=== PATIENT | male | born 1965 | race African-American/Black ===

== ENCOUNTER 2021-04-11 14:14 | Observation (INO) ==
[2021-04-11] MEDS ORDERED: REMDESIVIR 200 MG in NS 250 ML IV 250 ML IV ONE (15:47)
--- NOTE | 2021-04-11 16:08 | RAD ---
HISTORYPNEUMONIA, COVIDSTUDYCHEST x-ray, PA/LAT ADULTCOMPARISONX-ray 01/16/2021FINDINGSThere are vague peripheral infiltrates in both lungs that are probably due to mild COVID 19 pneumonia. Possible mild underlying COPD. Heart is normal in size. No pneumothorax or pleural effusion is seen.IMPRESSIONProbable mild bilateral COVID 19 pneumonia. Continued x-ray follow-up is recommended.Electronically signed by: Josh Baugh (Apr 11, 2021 16:06:21)
[2021-04-11] MEDS: NS 1,000 ML IV 1,000 ML IV SCH (16:29)
[2021-04-11 16:40] LABS: BASOPHILS % (AUTO) 0.4 % (0.2-1.0); HEMATOCRIT 43.5 % (42.0-54.0); HEMOGLOBIN 14.5 g/dL (13.5-18.0); LYMPHOCYTES # (AUTO) 0.9 X10^3/uL (1.3-2.9); LYMPHOCYTES % (AUTO) 12.6 % (21.0-51.0); MEAN CORPUSCULAR HEMOGLOBIN 30.8 pg (27.0-34.0); MEAN CORPUSCULAR HGB CONC 33.3 g/dL (33.0-35.0); MEAN CORPUSCULAR VOLUME 92.4 fL (80.0-100.0); MEAN PLATELET VOLUME 8.2 fL (7.4-11.0); MONOCYTES # (AUTO) 0.7 x10^3/uL (0.3-0.8); MONOCYTES % (AUTO) 10.4 % (0.0-13.0); NEUTROPHILS # (AUTO) 5.3 x10^3/uL (2.2-4.8); NEUTROPHILS % (AUTO) 76.6 % (42.0-75.0); RED BLOOD COUNT 4.71 X10^6/uL (4.7-6.0); WHITE BLOOD COUNT 6.9 X10^3/uL (3.6-10.0)
[2021-04-11 16:53] LABS: ALANINE AMINOTRANSFERASE 110 Units/L (12-78); ALBUMIN 3.5 g/dL (3.4-5.0); ALKALINE PHOSPHATASE 62 Units/L (46-116); ASPARTATE AMINO TRANSFERASE 132 Units/L (15-37); BLOOD UREA NITROGEN 18 mg/dL (7-18); CHLORIDE 103 mmol/L (98-107); COR NA(FOR HYPERGLY) 142 mmol/L (136-145); CREATININE 1.15 mg/dL (0.70-1.30); SODIUM 142 mmol/L (136-145); TOTAL PROTEIN 8.4 g/dL (6.4-8.2); eGFR NON BLACK RACES > 60 (>60)
[2021-04-11 17:03] LABS: ABG ALLEN TEST POS; ABG BASE EXCESS 8.3 mmol/L (-2.0-2.0); ABG HCO3 32.8 mmol/L (22-26)
[2021-04-11 17:16] VITALS: BMI 31.4
[2021-04-11] MEDS ORDERED: NS 100 ML IV 100 ML ONE (17:52)
--- NOTE | 2021-04-11 18:29 | CT ---
CT angiogram chest with contrastIndication: Hypertension, diabetes and elevated D-dimerTECHNIQUEHelical images through the chest after IV contrast. Coronal and sagittal reformats provided. MIP images provided.FINDINGSLimited images through the upper abdomen demonstrate right renal cyst. No other unexpected abnormality seen on limited images. Review of bone windows demonstrate no destructive osseous lesion. Degenerative changes seen at the sternomanubrial joint.Chest chest wall soft tissues show no unexpected abnormality. The thyroid gland is normal. Heart size is normal. Aortic arch and branch vessels are patent. Pulmonary artery bolus timing is suboptimal, without massive central pulmonary artery filling defect identified. However, the central segmental and subsegmental vessels are poorly evaluated and thrombus cannot be completely excluded.Patchy bilateral pulmonary opacities are somewhat peripherally located and basilar predominant, compatible with moderate viral pneumonitis, probably from COVID-19 infection.There is no pneumothorax, effusion or dense consolidation otherwise.IMPRESSION1. Suboptimal bolus timing limits evaluation for pulmonary embolus. While there is no massive central thrombus convincingly demonstrated. Proximal and distal vessels are poorly evaluated and thrombus cannot be completely excluded.2. Pulmonary opacities, compatible with COVID-19 viral pneumonitis most likely, moderate and appearance.Electronically signed by: MADHURI ANGEL (Apr 11, 2021 18:27:57)
[2021-04-11] MEDS ORDERED: PULMICORT NEB TX 0.5 MG NEB ONE (19:26)
[2021-04-11] MEDS ORDERED: BROVANA ONE (19:27)
[2021-04-11] MEDS: BROVANA IN SCH (20:35)
[2021-04-11] MEDS: PULMICORT NEB TX 0.5 MG NEB SCH (20:35)
[2021-04-11] MEDS ORDERED: TESSALON PERLES PO PRN (20:57)
--- NOTE | 2021-04-11 20:59 | DR.H&P ---
H&P History & Physical for Day of: H&P Date: 04/11/21 Chief Complaint Chief Complaint: Shortness of breath Generalized weakness, fever, chills Allergies Allergies Allergy/AdvReac Type Severity Reaction Status Date / Time No Known Drug Allergies Allergy Verified 02/04/19 02:56 History of Present Illness History of Present Illness: Pt is a 55 year old male past medical history of Hypertension, DMT2, presenting with shortness of breath, cough, fever, chills and generalized weakness since Friday. He went to ED yesterday and was diagnosed with COVID-19 infection. Today he tried to get Regen-COV infusion but was denied when found to by hypoxic on pulse ox and told to follow up with pcp. He was directly admitted after evaluation in clinic and was found that have pulse ox at 88%. Labs/imaging: Wbc 6.9, Hgb 14.5, Plt 249, Na 142, K 4.1, Creatinine 1.15, Glucose 119, CRP 19.5, D-dimer 1.02, ABG was obtained that revealed: pH 7.48, PC02 44, P02 55, HC03 32, 02 SAT 90, on RA. CXR: Probable mild bilateral COVID 19 pneumonia. Continued x-ray follow-up is recommended. Will start patient on treatment pneumonia protocol that includes: IVF NS@75 ml/h, Remdesivir, Solumedrol 80mg q8h, scheduled Bronchodilators Xopenex and Budesonide, Famotidine 40mg BID, Tussionex prn, immune supporting supplements, supplemental O2, SSI, I/S, Lovenox 30mg BID, Physical therapy, Respiratory therapy consult. Wean/titrate supplemental oxygen as tolerated. Will get CTA Chest due to elevated D-dimer in setting of hypoxia and COVID-19 infection. Continue to closely monitor and follow up labs/imaging. Time spent on clinical assessment, reviewing labs and imaging, decision making, and documentation greater than 45 minutes. Past Medical History Past Medical History: Diabetes and Hypertension Past Surgical History Surgical History: Ortho Surgery Family History Family Medical History: Diabetes Mellitus and Hypertension Social History Does patient currently use any type of tobacco product: No Have you used tobacco products in the last 12 months: No Type of Tobacco Use: None Alcohol Use: None Drug Use: None Medications Home Medications: No Known Drug Allergies Allergy (Verified 02/04/19 02:56) CONTINUE taking the following medications glipizide 2.5 mg PO DAILY 04/11/21 [History] lisinopril 30 mg PO DAILY 04/11/21 [History] Labs Result Diagrams: 04/11/21 16:20 04/11/21 16:20 Labs: Laboratory WBC 6.9 X10^3/uL (3.6-10.0) 04/11/21 16:20 RBC 4.71 X10^6/uL (4.7-6.0) 04/11/21 16:20 Hgb 14.5 g/dL (13.5-18.0) 04/11/21 16:20 Hct 43.5 % (42.0-54.0) 04/11/21 16:20 MCV 92.4 fL (80.0-100.0) 04/11/21 16:20 MCH 30.8 pg (27.0-34.0) 04/11/21 16:20 MCHC 33.3 g/dL (33.0-35.0) 04/11/21 16:20 RDW 13.0 % (11.6-16.5) 04/11/21 16:20 Plt Count 249 X10^3/uL (150.0-450.0) 04/11/21 16:20 MPV 8.2 fL (7.4-11.0) 04/11/21 16:20 Neut % (Auto) 76.6 % (42.0-75.0) H 04/11/21 16:20 Lymph % (Auto) 12.6 % (21.0-51.0) L 04/11/21 16:20 [place] % (Auto) 10.4 % (0.0-13.0) 04/11/21 16:20 Eos % (Auto) 0.0 % (0.9-2.9) L 04/11/21 16:20 Baso % (Auto) 0.4 % (0.2-1.0) 04/11/21 16:20 Neut # (Auto) 5.3 x10^3/uL (2.2-4.8) H 04/11/21 16:20 Lymph # (Auto) 0.9 X10^3/uL (1.3-2.9) L 04/11/21 16:20 [place] # (Auto) 0.7 x10^3/uL (0.3-0.8) 04/11/21 16:20 Eos # (Auto) 0.0 x10^3/uL (0.0-0.2) 04/11/21 16:20 Baso # (Auto) 0.0 X10^3/uL (0.0-0.1) 04/11/21 16:20 Absolute Nucleated RBC 0.1 /100WBC 04/11/21 16:20 D-Dimer 1.02 ug/ml (0.0-0.57) H* 04/11/21 16:20 Sample Site Rr 04/11/21 06:58 ABG pH 7.480 (7.35-7.45) H 04/11/21 06:58 ABG pCO2 44.0 mmHg (35.0-45.0) 04/11/21 06:58 ABG pO2 55.0 mmHg (80.0-100.0) L 04/11/21 06:58 ABG HCO3 32.8 mmol/L (22-26) H* 04/11/21 06:58 ABG O2 Saturation 90.0 % (90-100) 04/11/21 06:58 ABG Base Excess 8.3 mmol/L (-2.0-2.0) H 04/11/21 06:58 Shawn Test Pos 04/11/21 06:58 A-a Gradient 40.0 mmHg 04/11/21 06:58 FiO2 21.0 04/11/21 06:58 Blood Gas Comments Pt micah well cdn 04/11/21 06:58 Sodium 142 mmol/L (136-145) 04/11/21 16:20 Corrected Sodium 142 mmol/L (136-145) 04/11/21 16:20 Potassium 4.1 mmol/L (3.5-5.1) 04/11/21 16:20 Chloride 103 mmol/L (98-107) 04/11/21 16:20 Carbon Dioxide 29.0 mmol/L (21-32) 04/11/21 16:20 BUN 18 mg/dL (7-18) 04/11/21 16:20 Creatinine 1.15 mg/dL (0.70-1.30) 04/11/21 16:20 Est GFR (MDRD) Af Amer > 60 (>60) 04/11/21 16:20 Est GFR (MDRD) Non-Af > 60 (>60) 04/11/21 16:20 Glucose 119 mg/dL (65-99) H 04/11/21 16:20 POC Glucose (mg/dL) 127 mg/dL (65-99) H 04/11/21 20:17 Calcium 9.0 mg/dL (8.5-10.1) 04/11/21 16:20 Corrected Calcium TNP 04/11/21 16:20 Total Bilirubin 0.90 mg/dL (0.2-1.0) 04/11/21 16:20 AST 132 Units/L (15-37) H 04/11/21 16:20 ALT 110 Units/L (12-78) H 04/11/21 16:20 Alkaline Phosphatase 62 Units/L (46-116) 04/11/21 16:20 C-Reactive Protein 19.50 mg/L (0-3.0) H 04/11/21 16:20 Total Protein 8.4 g/dL (6.4-8.2) H 04/11/21 16:20 Albumin 3.5 g/dL (3.4-5.0) 04/11/21 16:20 Globulin 4.9 g/dL (2.5-4.5) H 04/11/21 16:20 Albumin/Globulin Ratio 0.7 Ratio (1.1-2.1) L 04/11/21 16:20 Review of Systems Constitutional: Fever, Chills and Weakness Eyes: No Symptoms Reported ENT: No Symptoms Reported Respiratory: Cough and Shortness of Breath Cardiovascular: No Symptoms Reported Gastrointestinal: No Symptoms Reported Genitourinary: No Symptoms Reported Musculoskeletal: No Symptoms Reported Skin: No Symptoms Reported Neurological: No Symptoms Reported Physical Exam Vital Signs: Temperature 100.1 F Pulse Rate [Apical] 102 Pulse Rate 101 Respiratory Rate 26 Blood Pressure [Left Arm] 144/93 Blood Pressure [Right Arm] 131/66 Blood Pressure 136/89 O2 Sat by Pulse Oximetry 96 Oriented: Normal Eyes: Normal Ear: Normal Nose: Normal Throat: Normal Respiratory: Diminished Throughout, Rhonchi Throughout and Rales Throughout Cardiovascular: Normal : Normal Auscultation: Bowel Sounds: Normal Palpation: Normal Tenderness: Normal Skin: Normal Musculoskeletal: Normal Psychiatric: Normal Mood Description: Calm and Appropriate Affect: Normal Speech Pattern: Clear and Appropriate Assessment/Plan (1) Pneumonia due to COVID-19 virus: Status: Acute Plan: Pneumonia protocol (2) Hypoxia: Status: Acute Review H&P Reviewed: Yes Patient was examined?: Yes
[2021-04-11] MEDS ORDERED: TYLENOL 325 MG TAB PO PRN (21:47)
[2021-04-11] MEDS ORDERED: TYLENOL 325 MG TAB PO ONE (21:49)
[2021-04-11] MEDS: PEPCID TAB 40 MG PO SCH (22:06)
[2021-04-11] MEDS: LOVENOX INJ 30 MG SYR SC SCH (22:06)
[2021-04-11] MEDS: ZINC SULFATE PO SCH (22:07)
[2021-04-11] MEDS: SOLU-Medrol 40 MG VIAL IVP SCH (22:09)
[2021-04-11] MEDS: TUSSIONEX PENNKINETIC SUSP PO PRN (22:09)
[2021-04-11] MEDS: RESTORIL CAP 15 MG PO PRN (22:09)
[2021-04-12 05:23] LABS: BASOPHILS % (AUTO) 0.2 % (0.2-1.0); HEMATOCRIT 39.2 % (42.0-54.0); HEMOGLOBIN 13.2 g/dL (13.5-18.0); LYMPHOCYTES # (AUTO) 0.3 X10^3/uL (1.3-2.9); LYMPHOCYTES % (AUTO) 6.8 % (21.0-51.0); MEAN CORPUSCULAR HEMOGLOBIN 30.8 pg (27.0-34.0); MEAN CORPUSCULAR HGB CONC 33.6 g/dL (33.0-35.0); MEAN CORPUSCULAR VOLUME 91.8 fL (80.0-100.0); MEAN PLATELET VOLUME 8.3 fL (7.4-11.0); MONOCYTES # (AUTO) 0.3 x10^3/uL (0.3-0.8); MONOCYTES % (AUTO) 5.9 % (0.0-13.0); NEUTROPHILS # (AUTO) 3.9 x10^3/uL (2.2-4.8); NEUTROPHILS % (AUTO) 87.1 % (42.0-75.0); RED BLOOD COUNT 4.27 X10^6/uL (4.7-6.0); RED CELL DISTRIBUTION WIDTH 13.3 % (11.6-16.5); WHITE BLOOD COUNT 4.5 X10^3/uL (3.6-10.0)
[2021-04-12 05:42] LABS: ALANINE AMINOTRANSFERASE 94 Units/L (12-78); ALKALINE PHOSPHATASE 55 Units/L (46-116); ASPARTATE AMINO TRANSFERASE 92 Units/L (15-37); BLOOD UREA NITROGEN 21 mg/dL (7-18); CALCIUM 8.4 mg/dL (8.5-10.1); CARBON DIOXIDE 27.9 mmol/L (21-32); CHLORIDE 103 mmol/L (98-107); COR CA(FOR HYPOALB) 9.2 mg/dL (8.5-10.1); COR NA(FOR HYPERGLY) 142 mmol/L (136-145); CREATININE 1.23 mg/dL (0.70-1.30); SODIUM 139 mmol/L (136-145); TOTAL PROTEIN 7.6 g/dL (6.4-8.2); eGFR NON BLACK RACES > 60 (>60)
[2021-04-12] MEDS: NS 1,000 ML IV 1,000 ML IV SCH ×3 (05:46→21:17)
[2021-04-12] MEDS: SOLU-Medrol 40 MG VIAL IVP SCH ×3 (05:47→21:18)
[2021-04-12] MEDS: GLUCOPHAGE PO SCH ×2 (06:01→17:02)
[2021-04-12] MEDS ORDERED: GLUCOPHAGE ONE ×2 (06:03→16:52)
--- NOTE | 2021-04-12 06:36 | RAD ---
HISTORYFollow-up COVID-19STUDYChest AP [id number] chest x-ray and CTA chestFINDINGSHeart size is normal. Mica are normal. Scattered ground-glass infiltrates are present throughout both lungs not significantly changed from the prior examination or the recent CTA chest. No pleural effusion or pneumothorax is identified. Bony thorax is unremarkable.IMPRESSIONScattered bilateral areas of ground-glass infiltrate suggestive of multifocal pneumonia and unchanged from the prior examination or recent CTAElectronically signed by: ZI CESAR (Apr 12, 2021 06:34:55)
[2021-04-12] MEDS: REMDESIVIR 100 MG in NS 250 ML IV 250 ML IV SCH (09:00)
[2021-04-12] MEDS: LOVENOX INJ 30 MG SYR SC SCH ×2 (09:01→21:17)
[2021-04-12] MEDS: GLUCOTROL XL 24-HR PO SCH (09:01)
[2021-04-12] MEDS: NORVASC TAB 10 MG PO SCH (09:02)
[2021-04-12] MEDS: PEPCID TAB 40 MG PO SCH ×2 (09:02→21:18)
[2021-04-12] MEDS: VITAMIN C PO SCH (09:02)
[2021-04-12] MEDS: ZESTRIL TAB 10 MG PO SCH (09:03)
[2021-04-12] MEDS: ZINC SULFATE PO SCH ×2 (09:03→21:18)
[2021-04-12] MEDS: PULMICORT NEB TX 0.5 MG NEB SCH ×2 (09:05→20:15)
[2021-04-12] MEDS: BROVANA IN SCH ×2 (09:05→20:15)
[2021-04-12] MEDS: TUSSIONEX PENNKINETIC SUSP PO PRN ×2 (09:34→21:21)
--- NOTE | 2021-04-12 10:31 | PCM.PROG ---
Progress Note Progress Note for Day of Date of Exam: 04/12/21 Subjective Subjective: Pt is a 55 year old male past medical history of Hypertension, DMT2, admitted for COVID-19 pneumonia with hypoxia. Pt is currently requiring 2L nasal cannula supplemental oxygen. This morning he reports some improvement in his breathing. Labs/imaging: Wbc 4.5, Hgb 13.2, Plt 241, Na 139, K 5.0, Creatinine 1.23, Glucose 231, CRP 19.5>37, D-dimer 1.02, Due to elevated D-dimer and hypoxia CTA Chest was obtained that revealed: 1. Suboptimal bolus timing limits evaluation for pulmonary embolus. While there is no massive central thrombus convincingly demonstrated. Proximal and distal vessels are poorly evaluated and thrombus cannot be completely excluded. 2. Pulmonary opacities, compatible with COVID-19 viral pneumonitis most likely, moderate and appearance. Pt is currently on pneumonia protocol: IVF NS@75 ml/h, Remdesivir, Solumedrol 80mg q8h, scheduled Bronchodilators Xopenex and Budesonide, Famotidine 40mg BID, Tussionex prn, immune supporting supplements, supplemental O2, SSI, I/S, Lovenox 30mg BID, Physical therapy, Respiratory therapy consult. Wean/titrate supplemental oxygen as tolerated. Will repeat CTA Chest due to poor contrast timing unable to completely rule out pulmonary embolism. Restart home medications. Add on smart vest. Otherwise will continue current treatment plan. Continue to closely monitor and follow up labs/imaging. Time spent on clinical assessment, reviewing labs and imaging, decision making, and documentation greater than 45 minutes. Past Medical Family Social History Past Med/Fam/Surg Hx: No changes since H&P Allergies: Allergies No Known Drug Allergies Allergy (Verified 02/04/19 02:56) Review of Systems ROS: No change since H&P Vital Signs and I&O's Vital Signs: Temperature 98.0 F Pulse Rate [Apical] 79 Pulse Rate 102 Respiratory Rate 19 Blood Pressure [Left Arm] 130/77 Blood Pressure [Right Arm] 131/66 Blood Pressure 136/89 O2 Sat by Pulse Oximetry 95 Intake and Output: Intake & Output 04/09/21 04/10/21 04/11/21 04/12/21 23:59 23:59 23:59 23:59 Intake Total 680 / 680 386 / 386 Balance 680 / 680 386 / 386 Physical Exam Oriented: Normal Eyes: Normal Ear: Normal Nose: Normal Throat: Normal Respiratory: Rales and Rhonchi Cardiovascular: Normal : Normal Auscultation: Bowel Sounds: Normal Tenderness: Normal Skin: Normal Musculoskeletal: Normal Psychiatric: Normal Mood Description: Calm and Appropriate Affect: Normal Speech Pattern: Clear and Appropriate Laboratory and Diagnostics Result Diagrams: 04/12/21 05:00 04/12/21 05:00 Labs: Laboratory WBC 4.5 X10^3/uL (3.6-10.0) 04/12/21 05:00 RBC 4.27 X10^6/uL (4.7-6.0) L 04/12/21 05:00 Hgb 13.2 g/dL (13.5-18.0) L 04/12/21 05:00 Hct 39.2 % (42.0-54.0) L 04/12/21 05:00 MCV 91.8 fL (80.0-100.0) 04/12/21 05:00 MCH 30.8 pg (27.0-34.0) 04/12/21 05:00 MCHC 33.6 g/dL (33.0-35.0) 04/12/21 05:00 RDW 13.3 % (11.6-16.5) 04/12/21 05:00 Plt Count 241 X10^3/uL (150.0-450.0) 04/12/21 05:00 MPV 8.3 fL (7.4-11.0) 04/12/21 05:00 Neut % (Auto) 87.1 % (42.0-75.0) H 04/12/21 05:00 Lymph % (Auto) 6.8 % (21.0-51.0) L 04/12/21 05:00 [place] % (Auto) 5.9 % (0.0-13.0) 04/12/21 05:00 Eos % (Auto) 0.0 % (0.9-2.9) L 04/12/21 05:00 Baso % (Auto) 0.2 % (0.2-1.0) 04/12/21 05:00 Neut # (Auto) 3.9 x10^3/uL (2.2-4.8) 04/12/21 05:00 Lymph # (Auto) 0.3 X10^3/uL (1.3-2.9) L 04/12/21 05:00 [place] # (Auto) 0.3 x10^3/uL (0.3-0.8) 04/12/21 05:00 Eos # (Auto) 0.0 x10^3/uL (0.0-0.2) 04/12/21 05:00 Baso # (Auto) 0.0 X10^3/uL (0.0-0.1) 04/12/21 05:00 Absolute Nucleated RBC 0.1 /100WBC 04/12/21 05:00 D-Dimer 1.02 ug/ml (0.0-0.57) H* 04/11/21 16:20 Sample Site Rr 04/11/21 06:58 ABG pH 7.480 (7.35-7.45) H 04/11/21 06:58 ABG pCO2 44.0 mmHg (35.0-45.0) 04/11/21 06:58 ABG pO2 55.0 mmHg (80.0-100.0) L 04/11/21 06:58 ABG HCO3 32.8 mmol/L (22-26) H* 04/11/21 06:58 ABG O2 Saturation 90.0 % (90-100) 04/11/21 06:58 ABG Base Excess 8.3 mmol/L (-2.0-2.0) H 04/11/21 06:58 Shawn Test Pos 04/11/21 06:58 A-a Gradient 40.0 mmHg 04/11/21 06:58 FiO2 21.0 04/11/21 06:58 Blood Gas Comments Pt micah well cdn 04/11/21 06:58 Sodium 139 mmol/L (136-145) 04/12/21 05:00 Corrected Sodium 142 mmol/L (136-145) 04/12/21 05:00 Potassium 5.0 mmol/L (3.5-5.1) 04/12/21 05:00 Chloride 103 mmol/L (98-107) 04/12/21 05:00 Carbon Dioxide 27.9 mmol/L (21-32) 04/12/21 05:00 BUN 21 mg/dL (7-18) H 04/12/21 05:00 Creatinine 1.23 mg/dL (0.70-1.30) 04/12/21 05:00 Est GFR (MDRD) Af Amer > 60 (>60) 04/12/21 05:00 Est GFR (MDRD) Non-Af > 60 (>60) 04/12/21 05:00 Glucose 231 mg/dL (65-99) H 04/12/21 05:00 POC Glucose (mg/dL) 127 mg/dL (65-99) H 04/11/21 20:17 Calcium 8.4 mg/dL (8.5-10.1) L 04/12/21 05:00 Corrected Calcium 9.2 mg/dL (8.5-10.1) 04/12/21 05:00 Total Bilirubin 1.00 mg/dL (0.2-1.0) 04/12/21 05:00 AST 92 Units/L (15-37) H 04/12/21 05:00 ALT 94 Units/L (12-78) H 04/12/21 05:00 Alkaline Phosphatase 55 Units/L (46-116) 04/12/21 05:00 C-Reactive Protein 37.90 mg/L (0-3.0) H 04/12/21 05:00 Total Protein 7.6 g/dL (6.4-8.2) 04/12/21 05:00 Albumin 3.0 g/dL (3.4-5.0) L 04/12/21 05:00 Globulin 4.6 g/dL (2.5-4.5) H 04/12/21 05:00 Albumin/Globulin Ratio 0.7 Ratio (1.1-2.1) L 04/12/21 05:00 Plan (1) Pneumonia due to COVID-19 virus: Status: Acute Plan: Pneumonia protocol (2) Hypoxia: Status: Acute
--- NOTE | 2021-04-12 11:17 | CT ---
HISTORYELEVATED DDIMER, COVID +STUDYCTA CHEST with IV contrastCOMPARISONCTA chest 04/11/2021TECHNIQUEMultiple axial images of the chest were obtained from the thoracic inlet to the upper abdomen after the administration of IV contrast. 3D reconstructions utilizing axial MIPS imaging was performed and reviewed. Dose reduction techniques including Automated Exposure Control (AEC) and adjustment of mA and kV were utilized.FINDINGSIs seen yesterday, there are bilateral ground-glass and interstitial infiltrates in the periphery of the lungs with mild alveolar consolidation in the CP angles. The alveolar consolidation is probably atelectasis and has slightly worsened since prior study. The peripheral infiltrates are concerning for COVID-19 pneumonia and are similar to prior study.No pneumothorax or pleural effusion is seen. There is likely fatty infiltration of the liver. Benign-appearing cyst is seen in the right kidney measuring 3.4 cm. Reactive lymph nodes are suspected in the mediastinum. These are similar to prior study.The thoracic aorta is normal in size without evidence of dissection. Unfortunately timing of contrast bolus is highly suboptimal in the pulmonary arteries. Little contrast is suggested and no evaluation for pulmonary emboli can be made.IMPRESSIONUnfortunately, evaluation for pulmonary emboli is inadequate as no appreciable contrast is seen in the pulmonary arteries at time of imaging.COVID-19 pneumonia is very similar to prior study with probable slight worsening of atelectasis at the lung bases.Electronically signed by: Josh Baugh (Apr 12, 2021 11:16:16)
[2021-04-12] MEDS: NovoLIN R (or HumuLIN R) SC PRN ×3 (11:18→21:20)
[2021-04-12] MEDS: RESTORIL CAP 15 MG PO PRN (21:20)
[2021-04-13] MEDS ORDERED: GLUCOPHAGE ONE (05:15)
[2021-04-13 05:21] LABS: BASOPHILS % (AUTO) 0.2 % (0.2-1.0); HEMATOCRIT 37.5 % (42.0-54.0); HEMOGLOBIN 12.4 g/dL (13.5-18.0); LYMPHOCYTES # (AUTO) 0.3 X10^3/uL (1.3-2.9); LYMPHOCYTES % (AUTO) 2.5 % (21.0-51.0); MEAN CORPUSCULAR HEMOGLOBIN 30.5 pg (27.0-34.0); MEAN CORPUSCULAR HGB CONC 33.1 g/dL (33.0-35.0); MEAN CORPUSCULAR VOLUME 92.1 fL (80.0-100.0); MEAN PLATELET VOLUME 8.2 fL (7.4-11.0); MONOCYTES # (AUTO) 1.2 x10^3/uL (0.3-0.8); MONOCYTES % (AUTO) 11.6 % (0.0-13.0); NEUTROPHILS # (AUTO) 9.1 x10^3/uL (2.2-4.8); NEUTROPHILS % (AUTO) 85.7 % (42.0-75.0); RED BLOOD COUNT 4.07 X10^6/uL (4.7-6.0); RED CELL DISTRIBUTION WIDTH 12.9 % (11.6-16.5); WHITE BLOOD COUNT 10.6 X10^3/uL (3.6-10.0)
[2021-04-13 05:42] LABS: ALANINE AMINOTRANSFERASE 67 Units/L (12-78); ALBUMIN 2.7 g/dL (3.4-5.0); ALKALINE PHOSPHATASE 52 Units/L (46-116); ASPARTATE AMINO TRANSFERASE 40 Units/L (15-37); BLOOD UREA NITROGEN 20 mg/dL (7-18); CALCIUM 8.4 mg/dL (8.5-10.1); CHLORIDE 107 mmol/L (98-107); COR CA(FOR HYPOALB) 9.4 mg/dL (8.5-10.1); COR NA(FOR HYPERGLY) 143 mmol/L (136-145); CREATININE 1.03 mg/dL (0.70-1.30); SODIUM 141 mmol/L (136-145); eGFR NON BLACK RACES > 60 (>60)
[2021-04-13] MEDS: SOLU-Medrol 40 MG VIAL IVP SCH (05:53)
[2021-04-13] MEDS: GLUCOPHAGE PO SCH (06:12)
--- NOTE | 2021-04-13 07:11 | RAD ---
HISTORYCOVID PNEUMONIASTUDYCHEST, 1 [id number].TECHNIQUEAP view of the chestFINDINGSCardiac and mediastinal contours are within normal limits. No significant change in bilateral airspace and interstitial opacities. No definite pleural effusion or pneumothorax.IMPRESSIONNo significant change.Electronically signed by: Stevie Self (Apr 13, 2021 07:09:52)
[2021-04-13] MEDS: NS 1,000 ML IV 1,000 ML IV SCH (08:00)
--- NOTE | 2021-04-13 08:27 | W.DIS.FURT ---
Summary of Discharge Discharge Summary of Date Date of Exam: 04/13/21 Admission Date Date of Admission: 04/11/21 Admission Diagnosis Hospital Course: Pt is a 55 year old male past medical history of Hypertension, DMT2, admitted for COVID-19 pneumonia with hypoxia. His hospital/treatment course included: IVF NS@75 ml/h, Remdesivir, Solumedrol 80mg q8h, scheduled Bronchodilators Xopenex and Budesonide, Famotidine 40mg BID, Tussionex prn, immune supporting supplements, supplemental O2, SSI, I/S, Lovenox 30mg BID, Physical therapy, Respiratory therapy consult. Pt responded well to treatments. He required 2L nasal cannula supplemental oxygen on discharge. Labs/imaging: Wbc 10.6, Hgb 12.4, Plt 253, Na 141, K 4.8, Creatinine 1.03, Glucose 203, CRP 18.7, CTA Chest negative for pulmonary embolism. Pt was discharged in stable condition. Rx prednisone course to complete. Instructed to follow up with pcp in 3-5 days. Vital Signs: Vital Signs (72 hours) 04/11/21 16:00 04/11/21 17:00 04/11/21 17:05 Temperature 100.1 F H Pulse Rate Pulse Rate [Apical] 102 H Respiratory Rate 24 26 H Blood Pressure [Left Arm] 142/87 144/93 O2 Sat by Pulse Oximetry 91 L 97 96 04/11/21 19:00 04/11/21 20:00 04/11/21 20:35 Temperature 102.1 F H Pulse Rate 101 H Pulse Rate [Apical] 98 H 101 H Respiratory Rate 24 28 H Blood Pressure [Left Arm] 147/87 156/89 O2 Sat by Pulse Oximetry 96 96 96 04/11/21 21:00 04/11/21 22:00 04/11/21 23:00 Temperature 100.0 F H Pulse Rate Pulse Rate [Apical] 99 H 96 H 99 H Respiratory Rate 33 H 31 H 20 Blood Pressure [Left Arm] 144/87 149/88 124/74 O2 Sat by Pulse Oximetry 94 L 94 L 94 L 04/12/21 00:00 04/12/21 01:00 04/12/21 02:00 Temperature Pulse Rate Pulse Rate [Apical] 86 80 81 Respiratory Rate 17 16 21 Blood Pressure [Left Arm] 120/81 126/81 130/79 O2 Sat by Pulse Oximetry 95 95 96 04/12/21 03:00 04/12/21 04:00 04/12/21 05:00 Temperature 98.0 F Pulse Rate Pulse Rate [Apical] 79 81 83 Respiratory Rate 18 19 23 Blood Pressure [Left Arm] 133/79 122/79 132/86 O2 Sat by Pulse Oximetry 95 95 95 04/12/21 06:00 04/12/21 08:00 04/12/21 09:05 Temperature 97.8 F Pulse Rate 102 H Pulse Rate [Apical] 79 82 Respiratory Rate 19 19 Blood Pressure [Left Arm] 130/77 137/89 O2 Sat by Pulse Oximetry 95 95 95 04/12/21 12:00 04/12/21 16:00 04/12/21 20:00 Temperature 98.3 F 98.7 F 98.5 F Pulse Rate Pulse Rate [Apical] 94 H 110 H 95 H Respiratory Rate 22 16 15 Blood Pressure [Left Arm] 136/86 159/87 167/89 O2 Sat by Pulse Oximetry 94 L 93 L 94 L 04/12/21 20:15 04/12/21 22:00 04/12/21 23:00 Temperature Pulse Rate 100 H Pulse Rate [Apical] 97 H 92 H Respiratory Rate 14 26 H Blood Pressure [Left Arm] 183/81 131/60 O2 Sat by Pulse Oximetry 95 94 L 92 L 04/13/21 00:00 04/13/21 01:00 04/13/21 02:00 Temperature 98.3 F Pulse Rate Pulse Rate [Apical] 95 H 82 78 Respiratory Rate 20 12 19 Blood Pressure [Left Arm] 146/99 143/68 145/87 O2 Sat by Pulse Oximetry 95 93 L 93 L 04/13/21 03:00 04/13/21 04:00 04/13/21 05:00 Temperature 98.0 F Pulse Rate Pulse Rate [Apical] 87 75 81 Respiratory Rate 23 12 18 Blood Pressure [Left Arm] 182/82 136/74 144/92 O2 Sat by Pulse Oximetry 91 L 95 92 L 04/13/21 06:00 Temperature Pulse Rate Pulse Rate [Apical] 79 Respiratory Rate 24 Blood Pressure [Left Arm] 152/93 O2 Sat by Pulse Oximetry 92 L Labs: Laboratory Last Values WBC 10.6 X10^3/uL (3.6-10.0) H 04/13/21 05:00 RBC 4.07 X10^6/uL (4.7-6.0) L 04/13/21 05:00 Hgb 12.4 g/dL (13.5-18.0) L 04/13/21 05:00 Hct 37.5 % (42.0-54.0) L 04/13/21 05:00 MCV 92.1 fL (80.0-100.0) 04/13/21 05:00 MCH 30.5 pg (27.0-34.0) 04/13/21 05:00 MCHC 33.1 g/dL (33.0-35.0) 04/13/21 05:00 RDW 12.9 % (11.6-16.5) 04/13/21 05:00 Plt Count 253 X10^3/uL (150.0-450.0) 04/13/21 05:00 MPV 8.2 fL (7.4-11.0) 04/13/21 05:00 Neut % (Auto) 85.7 % (42.0-75.0) H 04/13/21 05:00 Lymph % (Auto) 2.5 % (21.0-51.0) L 04/13/21 05:00 Whitley % (Auto) 11.6 % (0.0-13.0) 04/13/21 05:00 Eos % (Auto) 0.0 % (0.9-2.9) L 04/13/21 05:00 Baso % (Auto) 0.2 % (0.2-1.0) 04/13/21 05:00 Neut # (Auto) 9.1 x10^3/uL (2.2-4.8) H 04/13/21 05:00 Lymph # (Auto) 0.3 X10^3/uL (1.3-2.9) L 04/13/21 05:00 Whitley # (Auto) 1.2 x10^3/uL (0.3-0.8) H 04/13/21 05:00 Eos # (Auto) 0.0 x10^3/uL (0.0-0.2) 04/13/21 05:00 Baso # (Auto) 0.0 X10^3/uL (0.0-0.1) 04/13/21 05:00 Absolute Nucleated RBC 0.1 /100WBC 04/13/21 05:00 D-Dimer 1.02 ug/ml (0.0-0.57) H* 04/11/21 16:20 Sample Site Rr 04/11/21 06:58 ABG pH 7.480 (7.35-7.45) H 04/11/21 06:58 ABG pCO2 44.0 mmHg (35.0-45.0) 04/11/21 06:58 ABG pO2 55.0 mmHg (80.0-100.0) L 04/11/21 06:58 ABG HCO3 32.8 mmol/L (22-26) H* 04/11/21 06:58 ABG O2 Saturation 90.0 % (90-100) 04/11/21 06:58 ABG Base Excess 8.3 mmol/L (-2.0-2.0) H 04/11/21 06:58 Shawn Test Pos 04/11/21 06:58 A-a Gradient 40.0 mmHg 04/11/21 06:58 FiO2 21.0 04/11/21 06:58 Blood Gas Comments Pt micah well cdn 04/11/21 06:58 Sodium 141 mmol/L (136-145) 04/13/21 05:00 Corrected Sodium 143 mmol/L (136-145) 04/13/21 05:00 Potassium 4.8 mmol/L (3.5-5.1) 04/13/21 05:00 Chloride 107 mmol/L (98-107) 04/13/21 05:00 Carbon Dioxide 27.0 mmol/L (21-32) 04/13/21 05:00 BUN 20 mg/dL (7-18) H 04/13/21 05:00 Creatinine 1.03 mg/dL (0.70-1.30) 04/13/21 05:00 Est GFR (MDRD) Af Amer > 60 (>60) 04/13/21 05:00 Est GFR (MDRD) Non-Af > 60 (>60) 04/13/21 05:00 Glucose 203 mg/dL (65-99) H 04/13/21 05:00 POC Glucose (mg/dL) 230 mg/dL (65-99) H 04/12/21 19:56 Calcium 8.4 mg/dL (8.5-10.1) L 04/13/21 05:00 Corrected Calcium 9.4 mg/dL (8.5-10.1) 04/13/21 05:00 Total Bilirubin 0.80 mg/dL (0.2-1.0) 04/13/21 05:00 AST 40 Units/L (15-37) H 04/13/21 05:00 ALT 67 Units/L (12-78) 04/13/21 05:00 Alkaline Phosphatase 52 Units/L (46-116) 04/13/21 05:00 C-Reactive Protein 18.70 mg/L (0-3.0) H 04/13/21 05:00 Total Protein 7.0 g/dL (6.4-8.2) 04/13/21 05:00 Albumin 2.7 g/dL (3.4-5.0) L 04/13/21 05:00 Globulin 4.3 g/dL (2.5-4.5) 04/13/21 05:00 Albumin/Globulin Ratio 0.6 Ratio (1.1-2.1) L 04/13/21 05:00 Reason For Visit: PNEUMONIA, HYPOXIA Discharge Date Discharge Date: 04/13/21 Discharge Diagnosis All Active Problems (Updated 04/11/21 @ 21:05 by Robe Mata) Hypoxia (Acute) Pneumonia due to COVID-19 virus (Acute) New onset type 2 diabetes mellitus (Acute) Hypertension (Chronic) Diabetes education, encounter for (Acute) Hypoalbuminemia (Acute) Muscle spasm of back (Acute) Acute strain of neck muscle (Acute) Chest pain (Acute) COVID-19 (Acute) Bronchitis (Acute) Plan of Treatment: Continue with present treatment and follow up plan. Pt is to keep follow up appointment as instructed and take medications as ordered. Discharge Medications Discharge Medications: No Known Drug Allergies Allergy (Verified 02/04/19 02:56) CONTINUE taking the following medications glipizide 2.5 mg PO DAILY 04/11/21 [History] lisinopril 30 mg PO DAILY 04/11/21 [History] New Prescriptions benzonatate 100 mg PO TID PRN 10 Days #30 cap 04/13/21 [Rx] hydrocodone-chlorpheniramine 5 ml PO Q12H PRN 30 Days #150 ml MDD 10mL 04/13/21 [Rx] prednisone 20 mg PO BID 3 Days #6 tab 04/13/21 [Rx] Follow up and Referral Follow Up: 1 Week Discharge Disposition Assessment: No acute distress noted at time of discharge. Discharge Disposition: Home Discharge Condition: Stable Discharge Plan Discharge Plan Hospital Course: Pt is a 55 year old male past medical history of Hypertension, DMT2, admitted for COVID-19 pneumonia with hypoxia. His hospital/treatment course included: IVF NS@75 ml/h, Remdesivir, Solumedrol 80mg q8h, scheduled Bronchodilators Xopenex and Budesonide, Famotidine 40mg BID, Tussionex prn, immune supporting supplements, supplemental O2, SSI, I/S, Lovenox 30mg BID, Physical therapy, Respiratory therapy consult. Pt responded well to treatments. He required 2L nasal cannula supplemental oxygen on discharge. Labs/imaging: Wbc 10.6, Hgb 12.4, Plt 253, Na 141, K 4.8, Creatinine 1.03, Glucose 203, CRP 18.7, CTA Chest negative for pulmonary embolism. Pt was discharged in stable condition. Rx prednisone course to complete. Instructed to follow up with pcp in 3-5 days. Patient Disposition: 01 HOME, SELF-CARE Condition: Stable Health Concerns: Post Hospitalization: new medications and changes needed to prevent readmission or further decline. Pt educated and given instructions on all concerns. Care Plan Goals: Problem: Infection Goal: Temperature within normal limits. Resolved infection. Instructions: Follow provided instructions. Follow up with primary physician as directed. Contact primary care physician or report to the closest Emergency Room if condition worsens. Plan of Treatment: Continue with present treatment and follow up plan. Pt is to keep follow up appointment as instructed and take medications as ordered. Assessment: No acute distress noted at time of discharge. Prescriptions: New benzonatate 100 mg Capsule 100 mg PO TID PRN10 Days Qty: 30 RF: 0 hydrocodone-chlorpheniramine 10-8 mg/5 mL Suspension,Extended Rel 12 Hr 5 ml PO Q12H MDD 10mL PRN30 Days Qty: 150 RF: 0 prednisone 20 mg tablet 20 mg PO BID 3 Days Qty: 6 RF: 0 Continued metformin [Glucophage] 1,000 MG tablet 1,000 mg PO BIDWM Qty: 60 RF: 3 amlodipine 10 MG tablet 10 mg PO DAILY Qty: 30 RF: 3 glipizide 2.5 MG tablet extended release 24 hr 2.5 mg PO DAILY RF: 0 lisinopril 30 mg Tablet 30 mg PO DAILY RF: 0 Discontinued azithromycin [Zithromax Z-Hussein] 250 mg tablet See Rx Instructions .ROUTE .COMPLEX Qty: 6 RF: 0 benzonatate 200 mg capsule 200 mg PO TID PRN (Reason: cough) Qty: 20 RF: 0 prednisone 5 mg tablets,dose pack See Rx Instructions .ROUTE .COMPLEX Qty: 21 RF: 0 Orders to Discharge Patient Discharge Orders: Discharge (Routine); Ordered 04/13/21 Ordered By: Robe Mata Follow ups/Referrals Follow ups/Referrals: Robe Mata [STAFF PHYSICIAN] - 04/17/21 9:45 am Instructions Instructions: How to Use an Incentive Spirometer, Home Oxygen Use, Adult, Nonspecific Chest Pain, Adult, [id number], Hypoxia, COVID-19 Frequently Asked Questions, Prone Position Therapy, How to Wear and Take Off Your Mask - CDC (06/15/2020), How to Use a Nebulizer, Adult, Hypertension, Adult, [id number], COVID-19: Quarantine vs. Isolation - CDC (03/02/2020), You've Been Prescribed an Antibiotic in the Hospital for an Infection - CDC, Managing Your Hypertension Stand Alone Forms: Excuse From Work or School, Precautions for COVID19, [facility], Patient Portal, Social Distancing
[2021-04-13] MEDS: NORVASC TAB 10 MG PO SCH (08:45)
[2021-04-13] MEDS: GLUCOTROL XL 24-HR PO SCH (08:45)
[2021-04-13] MEDS: ZESTRIL TAB 10 MG PO SCH (08:45)
[2021-04-13] MEDS: ZINC SULFATE PO SCH (08:45)
[2021-04-13] MEDS: REMDESIVIR 100 MG in NS 250 ML IV 250 ML IV SCH (08:45)
[2021-04-13] MEDS: VITAMIN C PO SCH (08:45)
[2021-04-13] MEDS: PULMICORT NEB TX 0.5 MG NEB SCH (08:58)
[2021-04-13] MEDS: BROVANA IN SCH (08:58)
[2021-04-13] MEDS ORDERED: VITAMIN D3 125 mcg (5,000 UNITS) PO SCH (09:00)
[2021-04-13] MEDS: PEPCID TAB 40 MG PO SCH (09:15)
[2021-04-13 10:10] VITALS: BP 147/82
[2021-04-13] MEDS: LOVENOX INJ 30 MG SYR SC SCH (10:35)
== END 2021-04-13 12:01 | disposition home or self-care (01) ==
LOC: ICU
PROVIDERS: ADMIT Family Medicine; ATTEND Family Medicine
DX: R09.02 Hypoxemia; J12.81 Pneumonia due to SARS-associated coronavirus; J12.82 Pneumonia due to coronavirus disease 2019; U07.1 COVID-19; I10 Essential (primary) hypertension; E11.9 Type 2 diabetes mellitus without complications